=== PATIENT | female | born 1940 | race Caucasian/White ===

== ENCOUNTER → 2017-06-08 | Outpatient (CLI) | payer OTHER ==
[~2017-06-08] MED LIST: ACETAMINOPHEN325 M1 PO; ASPIRIN EC81 M1 PO; COREG6.25 MG PO; CRESTOR PO; CRESTOR5 MG PO; FLEXERIL PO; HYDROCODON-ACE1 EAC7 PO; IBUPROFEN 400400 M1 PO; LIPITOR 20 MG T20 M1 PO; MOBIC15 MG PO; NEXIUM 40 MG CA40 M1 PO; OMEPRAZOLE PO; OXYBUTYNIN; OXYBUTYNIN 5 MG5 M1 PO; OXYBUTYNIN PO; PERCOCET 5-3251 EACH PO; PRILOSEC OTC20 MG PO; TYLENOL P.M. E1 EAC3; ZOCOR40 MG PO
== END ==
LOC: M.RAD 06:52
DX: Z12.31 Encounter for screening mammogram for malignant neoplasm of breast (principal)

== ENCOUNTER → 2017-12-21 | Outpatient (CLI) | payer OTHER | LOC: M.ULTRA 07:51 | DX: E04.2 Nontoxic multinodular goiter (principal); I10 Essential (primary) hypertension; K21.9 Gastro-esophageal reflux disease without esophagitis; E78.5 Hyperlipidemia, unspecified; G45.9 Transient cerebral ischemic attack, unspecified; R94.6 Abnormal results of thyroid function studies; R07.2 Precordial pain ==

== ENCOUNTER → 2018-06-02 | Outpatient (CLI) | payer OTHER | LOC: M.RAD 09:11 | DX: Z12.31 Encounter for screening mammogram for malignant neoplasm of breast (principal) ==

== ENCOUNTER → 2018-08-25 | Outpatient (CLI) | payer OTHER ==
[2018-08-25 09:01] LABS: CALCIUM 9.2 mg/dL (8.5-10.1); CREATININE 0.9 mg/dL (0.6-1.3); POTASSIUM 4.5 mmol/L (3.5-5.1)
== END ==
LOC: M.LAB 08:29
PROVIDERS: Nurse Practitioner
DX: I10 Essential (primary) hypertension (principal)

== ENCOUNTER → 2019-07-05 | Outpatient (CLI) | payer MEDICARE | LOC: M.RAD 07:00 | DX: Z12.31 Encounter for screening mammogram for malignant neoplasm of breast (principal) ==